=== PATIENT | male | born 1985 | race Caucasian/White ===

== ENCOUNTER 2020-04-17 22:27 | Emergency (ER) | payer MEDICAID ==
[~2020-04-17] VITALS: Ht 185.4 cm; Wt 73.0 kg
[2020-04-17] MEDS ORDERED: CEPHALEXIN 250MG CAPSULE PO ONE (23:00)
[2020-04-17] MEDS ORDERED: TETANUS, DIPHTHERIA, PERTUSSIS VAC/PF 0.5ML (>7YR OLD) IM ONE (23:00)
[2020-04-17] MEDS ORDERED: MUPIROCIN 2% OINT 22GM TOP SCH (23:15)
[2020-04-18] MEDS ORDERED: FAMOTIDINE 20MG TABLET PO ONE (00:30)
[2020-04-18] MEDS ORDERED: LORAZEPAM 1MG TABLET PO ONE (01:30)
[2020-04-18 03:20] VITALS: BP 121/80
[2020-04-18] MEDS ORDERED: MUPIROCIN 2% OINT 22GM NS SCH (09:00)
== END 2020-04-18 03:21 | disposition home or self-care (01) ==
LOC: ER 22:27
DX: R21 Rash and other nonspecific skin eruption (principal); I49.9 Cardiac arrhythmia, unspecified; J45.909 Unspecified asthma, uncomplicated; Z86.59 Personal history of other mental and behavioral disorders; Z59.0 Homelessness
CPT/HCPCS: 71045; 90471; 90715; 93005; 99284